=== PATIENT | female | born 1970 | race Caucasian/White ===

== ENCOUNTER 2016-12-20 14:17 | Emergency (ER) | payer MEDICAID ==
[~2016-12-20] VITALS: Ht 162.6 cm; Wt 59.0 kg
[2016-12-20] MEDS ORDERED: METH40TA PO (14:28)
--- NOTE | 2016-12-20 14:40 | NUR ---
During the medical screening examination, the patient became extremely rude to our MD . The patient wanted lasix, some blood tests and other non-emergent diagnostic tests. Limiting behavior initiated. Per patient's request, patient's mother came at bedside during the end the MD examination.
--- NOTE | 2016-12-20 14:51 | NUR ---
Patient eloped with brisk steady gait after extensive explanation by our MD re: today's plan of care in this ER.
== END 2016-12-20 14:52 | disposition left against medical advice (07) ==
LOC: ER 14:17
DX: M25.572 Pain in left ankle and joints of left foot (principal); R60.0 Localized edema; B19.20 Unspecified viral hepatitis C without hepatic coma; F17.200 Nicotine dependence, unspecified, uncomplicated
CPT/HCPCS: A4663

== ENCOUNTER 2022-05-31 22:02 | Emergency (ER) | payer MEDICAID, OTHER ==
[~2022-05-31 22:02] MED LIST: METH40TA PO
--- NOTE | 2022-05-31 23:02 | NUR ---
Pt not in waiting room.
== END 2022-05-31 23:04 | disposition left against medical advice (07) ==
LOC: ER 22:04
DX: Z53.21 Procedure and treatment not carried out due to patient leaving prior to being seen by health care provider (principal)